=== PATIENT | male | born 1955 | race Caucasian/White ===

== ENCOUNTER 2020-05-16 13:07 | Outpatient (CLI) | payer OTHER, SELFPAY ==
--- NOTE | ~2020-05-16 | CT_ITS ---
EXAMINATION: CT abdomen pelvis wo con DATE: 05/16/2020 14:09 INDICATION: Unspecified abdominal pain TECHNIQUE: Computed tomography (CT) of the abdomen and pelvis was performed without intravenous contr ast. The dose-length product (DLP) was 506.67 mGy-cm. Automated exposure control and iterative recons truction technique were employed. COMPARISON: 10/22/2018 FINDINGS: Minimal dependent atelectasis is present in the lung bases. The heart size is normal. There is a small sliding hiatal hernia. The liver, spleen, pancreas, gallbladder, and adrenal glands are n ormal. There is a 4 mm nonobstructing stone of the left kidney lower pole. No stones are identified i n the right kidney, ureters, or the bladder. There is no hydronephrosis or hydroureter. No pathologic ally enlarged abdominal or pelvic lymph nodes are identified. There is no free intraperitoneal gas or evidence of bowel obstruction. Colonic diverticulosis is present without evidence of diverticulitis. The appendix is normal. There is a tiny fat-containing umbilical hernia. And unchanged sclerotic les ion of the sacrum has the appearance of a bone island. There is mild to moderate osteoarthritis of th e hips. Moderate spondylosis is noted in the lower lumbar spine. IMPRESSION: 1. No CT correlate for the patient's symptoms. 2. Nonobstructing left nephrolithiasis. Reviewed, dictated and finalized at location A. MANAGEMENT AIDE
== END 2020-05-16 13:08 | disposition home or self-care (01) ==
PROVIDERS: PCP Family Medicine; Visit Provider Family Medicine
DX: R10.9 Unspecified abdominal pain (principal); N20.0 Calculus of kidney
CPT/HCPCS: 74176

== ENCOUNTER 2021-01-04 11:45 | Outpatient (CLI) | payer OTHER, SELFPAY ==
--- NOTE | ~2021-01-04 | XR_ITS ---
EXAMINATION: XR_CERV2-3V_CR DATE: 01/04/2021 12:20 INDICATION: Neck pain. TECHNIQUE: 5 views of cervical spine were obtained. COMPARISON: Cervical spine radiographs 02/26/2018 FINDINGS: There is 7 degrees levocurvature of cervical spine. There is 2 mm anterolisthesis of C3 on C4 and 2 mm retrolisthesis of C4 on C5. Vertebral body heights are normal. There is moderately decrea sed disc height at C4-C5 and C5-C6 and severely decreased disc height at C6-C7. There is multilevel u ncovertebral joint osteoarthritis, severe on the right at C4-C5 and bilaterally at C5-C6 and C6-C7. T here is multilevel mild to moderate facet joint osteoarthritis. There is mild central canal stenosis at C3-C4, C4-C5, C5-C6, and C6-C7. No prevertebral soft tissue swelling. IMPRESSION: 1. Severe cervical spondylosis. Reviewed, dictated and finalized at location A.
== END 2021-01-04 11:46 ==
LOC: MICIMG 11:47
PROVIDERS: PCP Family Medicine; Visit Provider Family Medicine
DX: M47.892 Other spondylosis, cervical region (principal)
CPT/HCPCS: 72040

== ENCOUNTER 2021-06-03 07:57 | Outpatient (CLI) | payer OTHER, SELFPAY ==
--- NOTE | ~2021-06-03 | MR_ITS ---
EXAMINATION: MR shoulder LT wo con DATE: 06/03/2021 08:51 INDICATION: Tear of left rotator cuff. TECHNIQUE: Magnetic resonance imaging (MRI) of the left shoulder was performed without intravenous co ntrast. Sequences included axial PD-weighted FS FSE, coronal oblique PD-weighted FS FSE and T2-weight ed FS FSE, and sagittal oblique T2-weighted FS FSE and T1-weighted FSE. COMPARISON: None. FINDINGS: Coracoacromial arch: The acromion undersurface is curved in morphology with anterior hook (type III). There is severe acro mioclavicular joint osteoarthritis including inferiorly directed osteophytes. There is mild subacromi al/subdeltoid bursitis. Rotator cuff: There is severe supraspinatus tendinopathy. There is a bursal sided partial-thickness tear of suprasp inatus tendon measuring 1.3 cm anterior to posterior by 3.2 cm proximal to distal by 30% tendon thick ness. There is moderate infraspinatus tendinopathy. Teres minor tendon is normal. There is severe sub scapularis tendinopathy. There is no asymmetric fatty atrophy of the rotator cuff muscle bellies. Biceps tendon and glenoid labrum: Biceps tendon is in bicipital groove. There is a longitudinal split tear of proximal biceps tendon. T here is widespread tearing of the glenoid labrum (SLAP tear). Fluid: There is a small glenohumeral joint effusion. Bones/cartilage: There is shallow partial-thickness cartilage loss of glenoid and humeral head with marginal osteophyt es. IMPRESSION: 1. Severe rotator cuff tendinopathy with bursal sided partial-thickness tear of supraspinatus tendon. 2. Mild glenohumeral joint chondrosis. SLAP tear. 3. Longitudinal split tear of proximal biceps tendon. 4. Severe acromioclavicular joint osteoarthritis. 5. Small glenohumeral joint effusion. 6. Mild subacromial/subdeltoid bursitis. Reviewed, dictated and finalized at location B. CAL FRONT DESK SPECIALIST
== END 2021-06-03 07:58 | disposition home or self-care (01) ==
LOC: ANHIMG 08:06
PROVIDERS: PCP Family Medicine; Visit Provider Physician Assistant
DX: M75.21 Bicipital tendinitis, right shoulder (principal); M75.22 Bicipital tendinitis, left shoulder; M75.102 Unspecified rotator cuff tear or rupture of left shoulder, not specified as traumatic; M19.011 Primary osteoarthritis, right shoulder; M19.012 Primary osteoarthritis, left shoulder; M25.412 Effusion, left shoulder
CPT/HCPCS: 73221; 87070

== ENCOUNTER → 2021-11-07 02:04 | Outpatient (CLI) | payer OTHER, SELFPAY ==
[2021-11-07 12:44] LABS: SARS-CoV-2 RNA PCR Negative
== END ==
PROVIDERS: PCP Family Medicine; Visit Provider Nurse Practitioner Family
DX: R05.9 Cough, unspecified (principal); Z20.822 Contact with and (suspected) exposure to COVID-19
CPT/HCPCS: C9803; U0003; U0005

== ENCOUNTER 2023-01-03 09:08 | Outpatient (CLI) | payer OTHER, SELFPAY ==
--- NOTE | ~2023-01-03 | XR_ITS ---
Lumbosacral Spine: AP, oblique, and lateral views Clinical History: Pain Findings: The normal lordotic curve is maintained. Probable mild compression deformity of L1 present. No subluxation evident. There is severe facet arthropathy throughout the lumbar spine. There is mode rate degenerative disc narrowing at L5-S1. The sacroiliac joints are normally outlined. Impression: Probable mild compression fracture deformity of L1. Advanced degenerative spondylosis, as detailed above. Reviewed, dictated and finalized at location . Impression: Probable mild compression fracture deformity of L1. Advanced degenerative spondylosis, as detailed above.
== END 2023-01-03 09:09 ==
PROVIDERS: PCP Family Medicine; Visit Provider Chiropractor
DX: M47.817 Spondylosis without myelopathy or radiculopathy, lumbosacral region (principal); M53.87 Other specified dorsopathies, lumbosacral region; M25.48 Effusion, other site
CPT/HCPCS: 72110

== ENCOUNTER 2025-01-20 10:13 | Outpatient (CLI) | payer OTHER, SELFPAY ==
--- NOTE | ~2025-01-20 | XR_ITS ---
Lumbosacral Spine: AP and lateral views Clinical History: Pain Findings: The normal lordotic curve is maintained. No fracture seen. There is 6 mm retrolisthesis of L1 over L2. There is 7 mm anterolisthesis of L4 over L5. There is advanced degenerative disc narrowin g at L5-S1. There is severe facet arthropathy throughout the lumbar spine. The sacroiliac joints are normally outlined. Impression: 6 mm retrolisthesis of L1 over L2. 7 mm anterolisthesis of L4 over L5. Diffuse, severe facet arthropathy throughout the lumbar spine. Reviewed, dictated and finalized at location M. Impression: 6 mm retrolisthesis of L1 over L2. 7 mm anterolisthesis of L4 over L5. Diffuse, severe facet arthropathy throughout the lumbar spine.
== END 2025-01-20 10:14 | disposition home or self-care (01) ==
LOC: MICIMG 10:14
PROVIDERS: PCP Family Medicine; Visit Provider Family Medicine
DX: M54.50 Low back pain, unspecified (principal)
CPT/HCPCS: 72100

== ENCOUNTER 2025-06-15 03:24 | Day surgery (SDC) | payer OTHER, SELFPAY ==
--- OUTSIDE RECORDS SUMMARY | 2023-04-18 09:11 | XMS_ITS | Encounter Summary ---
Author Organization [facility] Healthcare Address [address] [place] [address] Care Team Providers Care Water Main Inspector Name Role Phone Glenn Hassan MD Primary Care Provider Reason for Visit * Diagnostic Imaging (Routine) - Closed Specialty Diagnoses / Procedures Referred By Contac t Referred To Contact Diagnoses Primary osteoarthritis of right hip Procedures XR Pelvis 1 or 2 Views Jt Vuong MD [address] [place] [address] [address] [place] [address] Phone: tel: Referral ID Status Reason Start Date Expiration Date Visits Re quested Visits Authorized [id number] Closed 04/18/2023 05/17/2024 1 1 Encounter Details Date Type Department Care Team (Late st Contact Info) Description 04/18/2023 10:11 AM CDT Hospital Encounter [facility] [address] [place] [address] [address] [place] [id number] Social History Tobacco Use Types Packs/Day Years Used Date Smoking Tobacco: Never Smokeless Tobacco: Never Alcohol Use Standard Drinks/Week Comments Yes 0 (1 standard drink = 0.6 oz pur e alcohol) AUDIT-C Answer Date Recorded Q1: How often do you have a drink containing alc ohol? Monthly or less 07/17/2023 Q2: How many drinks containi ng alcohol do you have on a typical day when you are drinking? 1 or 2 07/17/2023 Frequency of Binge Drinking Not on file 09/2023 Personal Safety Answer Date Recorded Have you ever been in or are you currently in a harmful physical or emotional relationship or is someone making you feel afraid or unsafe? 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 Not on file Not on file documented as of this encounter Functional Status * Difference in Last Two Narciso Scores Answer Date of Assessment Author 0 07/30/2023 9:10 AM Jazmín Disla RN * Question Answer Date of Assessment Author MAP (mmHg) 88 07/29/2023 11:20 AM JAIL KEEPER Marce Santacruz RN * Jose Fall Risk Question Answer Date of Assessment Author History of Falling 0 07/30/2023 9:10 AM Racheal Disla RN Secondary Diagnosis 0 07/30/2023 9:10 AM Racheal Santamaria RN Ambulatory Aids 15 07/30/2023 9:10 AM Racheal Hinds mm, RN Intravenous Therapy/Heparin/Saline Lock 20 07/30/2023 9:10 AM Jazmín Disla, RN Gait/Transferring 10 07/30/2023 9:10 AM Racheal Disla RN Mental Status 0 07/30/2023 9:10 AM Racheal Disla RN Morse Fall Risk Score (Score >= 45 places fall precaution order) 45 07/30/2023 9:10 AM Racheal Disla RN Prior Fall Event (Autopopulated from EMR) None found 07/30/2023 9:10 AM Josiane Disla RN * Narciso Scale Question Answer Date of Assessment Author Sensory Perceptions 4 07/30/2023 9:10 AM Racheal Santamaria RN Moisture 4 07/30/2023 9:10 AM Racheal Disla RN Activity 3 07/30/2023 9:10 AM Racheal Disla RN Mobility 3 07/30/2023 9:10 AM Racheal Disla RN Nutrition 3 07/30/2023 9:10 AM Racheal Disla RN Friction and Shear 3 07/30/2023 9:10 AM Racheal Disla RN Narciso Scale Score 20 07/30/2023 9:10 AM Racheal Disla, RADHA * Question Answer Date of Assessment Author BP Location Left arm 07/30/2023 10:54 AM Gayle Barton BP Method Automatic 07/30/2023 10:54 AM Gayle Barton * Fall Risk Interventions Question Answer Date of Assessment Author All Low Fall Interventions Applied Yes 2023 9:10 AM Racheal Disla, RADHA All Moderate Fall Interventi ons Applied Yes 07/30/2023 9:10 AM Racheal Disla RN All High Fall Risk Intervent ions Applied Yes 07/30/2023 9:10 AM Racheal Disla, RADHA * B.M.A.T. - Bedside Mobility Assessment Tool for Nurses Question Answer Date of Assessment Author Is patient able to participate in the BMAT? Yes 07/30/2023 9:10 AM Racheal Disla RN BMAT Level Level 3 - Yellow 07/30/2023 9:10 AM Racheal Pollack RN Level 3 Equipment Use assistive device such as cane/walker 07/30/2023 9:10 AM Racheal Disla, RADHA * Question Answer Date of Assessment Author 1. Has the patient self-repo rted, presented with clinical signs of, or have a documented history of any of the following within the past 30 days? No 07/30/2023 9:10 AM Racheal Disla, RN * Question Answer Date of Assessment Author Is the patient being treated today because it is known or suspected that they prepared, started, or tried to end their life? No 07/29/2023 3:23 PM Josiane Disla, RADHA * Question Answer Date of Assessment Author 1. In the past month, have y ou wished you were or that you could go to sleep and not wake up? No 07/29/2023 3:23 PM Racheal Hinds mm, RN 2. In the past month, have y ou actually had any thoughts of killing yourself? No 07/29/2023 3:23 PM Racheal Disla, RADHA 6. Have you ever done anythi ng, started to do anything, or prepared to do anything to end your life? No 07/29/2023 3:23 PM Racheal Disla, RADHA * Suicide Risk Level Answer Date of Assessment Author No risk level 07/29/2023 3:23 PM Jazmín Disla RN * Self-Injurious Risk Level Answer Date of Assessment Author No risk level 07/30/2023 9:10 AM Jazmín Disla RN * Pressure Injury Prevention Question Answer Date of Assessment Author Pressure Ulcer Prevention Interventions Keep skin clean and dry (Sensory Perception/Moisture) ;Provide adequate nutrition/fluid intake (Nutrition) 07/30/2023 9:10 AM Racheal Disla RN 2 Nurse Skin Assessment Elsie Springer RN, RN 3:26 PM Racheal Disla RN * Transdermal Patch Admission Assessment Question Answer Date of Assessment Author Transdermal Patch Assessment on Admission Other (comment) 07/29/2023 3:22 PM Racheal Disla RN * Alcohol Use Question Answer Date of Assessment Author Q1: How often do you have a drink containing alcohol? Monthly or less 07/17/2023 11:41 AM Carmella Newton RN Q2: How many drinks containing alcohol do you have on a typical day when you are drinking? 1 or 2 07/17/2023 11:41 AM Carmella Newton RN * Integumentary Question Answer Date of Assessment Author Skin Color Appropriate for ethnicity 07/30/2023 9:10 AM Racheal Disla RN Skin Condition/Temp Warm;Dry 07/30/2023 9 :10 AM Racheal Disla RN Skin Integrity Surgical incision 07/30/2023 9:1 0 AM Racheal Disla, RADHA Skin Turgor Non-tenting 07/30/2023 9:10 AM Racheal Disla RN Integumentary Additional Assessments Yes-Narciso 07/30/2023 9:10 AM Racheal Disla RN Integumentary (WDL) X 07/30/2023 9 :10 AM Racheal Disla RN Skin Location right hip 07/30/2023 9:10 AM Racheal Disla, RN * Question Answer Date of Assessment Author RLE Edema No pitting 07/29/2023 7:15 PM Nafisa Martinez RN Edema Right lower extremity 07/29/2023 7:15 PM Nafisa Cheek, RN * Question Answer Date of Assessment Author Percent Meal Eaten (%) 50 07/30/2023 10:30 A M Gayle Barton * Question Answer Date of Assessment Author BP Location Left arm 07/30/2023 10:54 AM Gayle Barton BP Method Automatic 07/30/2023 10:54 AM Gayle Barton * Question Answer Date of Assessment Author Bath Not bathed/showered 07/30/2023 10:11 AM Francisco Stout, OT * Fall Risk Interventions Question Answer Date of Assessment Author All Low Fall Interventions Applied Yes 2023 9:10 AM Racheal Disla RN All Moderate Fall Interventi ons Applied Yes 07/30/2023 9:10 AM Racheal Disla RN All High Fall Risk Intervent ions Applied Yes 07/30/2023 9:10 AM Racheal Disla, RADHA * ADL Screening Question Answer Date of Assessment Author Patient's Vision Adequate to Safely Complete Daily Activities Yes 07/29/2023 3:17 PM Racheal Disla, RADHA Patient's Judgement Adequate to Safely Complete Daily Activities Yes 07/29/2023 3:17 PM Kristen Disla, RADHA Patient's Memory Adequate to Safely Complete Daily Activities Yes 07/29/2023 3:17 PM Racheal Disla, RADHA Patient Able to Express Needs/Desires Yes 07/29/2023 3:17 PM Racheal Disla, RN Dressing Independent 07/29/2023 3:17 PM Racheal Disla, RN Grooming Independent 07/29/2023 3:17 PM Racheal Disla, RN Feeding Independent 07/29/2023 3:17 PM Racheal Disla, RN Bathing Independent 07/29/2023 3:17 PM Racheal Disla, RN Toileting Independent 07/29/2023 3:17 PM Racheal Disla, RN In/Out Bed Independent 07/29/2023 3:17 PM Racheal Disla, RN Walks in Home Independent 07/29/2023 3:17 PM Racheal Disla, RN Weakness of Legs None 07/29/2023 3:17 PM JAIL KEEPER Racheal Rdz, RN Weakness of Arms/Hands None 07/29/2023 3:17 PM Racheal Disla, RN Hearing - Right Ear Hard of hearing 07/29/2023 3:17 PM Racheal Disla, RN Hearing - Left Ear Hard of hearing 07/29/2023 3:17 PM Racheal Disla, RN Dominant hand? Right 07/29/2023 3:17 PM Racheal Norwood, RADHA Decline in ADLs in last 2 weeks? No 07/29/2023 3:17 PM Racheal Disla, RN * Therapy Consults Question Answer Date of Assessment Author PT Evaluation Needed 2 07/29/2023 3:17 PM Racheal Welsh, RADHA OT Evaluation Needed 2 07/29/2023 3:17 PM Racheal Welsh, RN CREDIT CONSULTANT Evaluation Needed 2 07/29/2023 3:17 PM Racheal Disla, RN * Assistive Devices Question Answer Date of Assessment Author Assistive Devices/DME Eyeglasses 07/29/2023 3:17 PM Racheal Disla, RN * Speech/Swallow Screening Question Answer Date of Assessment Author Currently, does patient have difficulty swallowing; coughing/choking while swallowing, or feels like food is sticking No 07/29/2023 3:17 PM Racheal Disla RN In the past two weeks has the patient had changes in speaking or ability to comprehend conversation No 07/29/2023 3:17 PM Racheal Disla RN Currently, does patient require thickened liquids or dysphagia diet No 07/29/2023 3:17 PM Racheal Disla RN Patient is in need of CREDIT CONSULTANT Order: No CREDIT CONSULTANT order needed from this assessment 07/29/2023 3:17 PM Racheal Disla RN * Hygiene Question Answer Date of Assessment Author Hygiene Level of Assistance Moderate assist 07/29/2023 7:15 PM JAIL KEEPER Nafisa Randall RN documented as of this encounter Mental Status * Question Answer Entry Date Author Orientation Oriented X4 (person, place, time, situation) 07/30/2023 10:11 AM JAIL KEEPER Francisco Valerio OT * Question Answer Entry Date Author Level of Consciousness Alert;Awake 07/30/2023 9:10 AM Racheal Disla RN Neuro (WDL) WDL 07/30/2023 9:10 AM Racheal Disla RN documented in this encounter Plan of Treatment Pending Results Name Type Priority Associated Diagnoses Date /Time XR Pelvis 1 or 2 Views Imaging Schedule Routine, Read Routine (OP Routine) Primary osteoarthritis of right hip 04/18/2023 1:28 PM CDT documented as of this encounter Visit Diagnoses Not on filedocumented in this encounter Care Teams Water Main Inspector Relationship Specialty Start Date End Date Glenn Hassan MD [address] [facility] [address] [facility] [address] [place] [address] PCP - General Family Medicine 07/20/19 documented as of this encounter
[2025-05-26 13:59] VITALS: BMI 32.5
--- OUTSIDE RECORDS SUMMARY | 2025-06-15 03:26 | XMS_ITS | Clinical Summary ---
Author Organization [facility] Address [address] [place] [id number] Care Team Providers Care Optical Engineering Technician Name Role Phone Glenn Hassan MD Primary Care Provider [phone] Social History Tobacco Use Types Packs/Day Years Used Date Smoking Tobacco: Never Assessed Sex and Gender Information Value Date Recorded Sex Assigned at Not on file Legal Sex Male 2:41 PM CDT Gender Identity Not on file Sexual Orientation Not on file Plan of Treatment Health Maintenance Due Date Last Done Comments Colorectal Cancer Screening Colonoscopy (10 Years) 1955 Hepatitis C 1972 DTaP, Tdap and Td Vaccines ( 1 - Tdap) 1973 Pneumococcal Vaccine: 50+ Ye ars (1 of 1 - PCV) 2004 Zoster Vaccines (1 of 2) 2004 COVID-19 Vaccine (1 - 2024-2 6 season) 2025 Influenza Adult (#1) 2025 RSV Immunization or 60+ Years (1 - 1-dose 75+ series) 2029 Hepatitis A Vaccines Aged Out No long er eligible based on patient's age to complete this topic Meningococcal B Vaccine Aged Out No l onger eligible based on patient's age to complete this topic Meningococcal Vaccine Aged Out No missy sarah eligible based on patient's age to complete this topic RSV Immunizations Under 20 Months Aged Out No longer eligible based on patient's age to complete this topic Care Teams Optical Engineering Technician Relationship Specialty Start Date End Date Glenn Hassan MD [address] [place] [address] PCP - General FAMILY PRACTICE 01/07/25
--- OUTSIDE RECORDS SUMMARY | 2025-06-15 03:26 | XMS_ITS | Clinical Summary ---
Author Organization [facility] Address [address] [place] [address] Care Team Providers Care Diet Consultant Name Role Phone Glenn Hassan MD Primary Care Provider Jt Vuong MD Unavailable [phone] Allergies No known active allergies Medications metFORMIN XR (GLUCOPHAGE XR) 500 mg 24 hr tablet metformin ER 500 mg tablet,extended release 24 hr Active lisinopril (PRINIVIL,ZESTRI L) 40 mg tablet Take 1 tablet (40 mg total) by mouth daily 0 Active hydroCHLOROthiaz ruthy (HYDRODIURIL) 25 mg tablet Take 1 tablet (25 mg total) by mouth daily Active esomeprazole DR (NexIUM) 40 mg capsule Take 1 capsule (40 mg total) by mouth daily before breakfast Active Januvia 100 mg tablet Take 1 tablet (100 mg total) by mouth daily 3 Active ferrous sulfate 325 mg (65 mg of elemental iron) tablet Take 1 tablet (325 mg total) by mouth daily with breakfast Active cholecalciferol 25 mcg (1,000 unit) tablet Take 1 tablet (1,000 Units total) by mouth daily Active vitamin A 2,400 mcg (8,000 units) capsule Take 1 capsule (8,000 Units total) by mouth daily Active multivit-min/fol ic/vit K/lycop (MEN'S 50 PLUS MULTIVITAMIN ORAL) Take by mouth daily Active aspirin (Ecotrin) 325 mg enteric coated tabletIndication s:prevention of thrombosis Take 1 tablet (325 mg total) by mouth daily 42 tablet 4 Active celecoxib (CeleBREX) 200 mg capsuleIndicatio ns:Postoperative Acute Pain Take 1 capsule (200 mg total) by mouth 2 (two) times a day 84 capsule 4 Active ondansetron (ZOFRAN) 8 mg tabletIndication s:Prevention of Post-Operative Nausea and Vomiting Take 1 tablet (8 mg total) by mouth every 8 (eight) hours as needed for nausea or vomiting 20 tablet 2 4 Active senna-docusate (PERICOLACE) 8.6-50 mg Take 1 tablet by mouth 2 (two) times a day as needed for constipation 60 tablet 2 4 Active oxyCODONE-acetam inophen (PERCOCET) 5-325 mg per tabletIndication s:Pain Take 1-2 tablets by mouth every 4 (four) hours as needed for pain 40 tablet 4 Active Vitamin C 500 mg tablet,chewable 4 Active Active Problems Problem Noted Date Diagnosed Date 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 09/23/2023 Age-related nuclear cataract 04/20/2014 Lattice degeneration of retina 04/20/2014 Retinal detachment with giant retinal tear 04/20 Vitreous hemorrhage 04/20/2014 Resolved Problems Problem Noted Date Diagnosed Date Resolved Date Primary osteoarthritis of right hip 07/17/2023 09/23/2023 Encounters Date Type Department Care Team Description 06/01/2025 Telephone [facility] Medicine Scheduling [address] [id number] Vandana Castro 05/10/2025 7:12 AM CDT - 05/10/2025 11:59 PM CDT Hospital Encounter [address] [address] Cervical spondylosis with myelopathy Discharge Disposition: Discharge to home or self care 04/23/2025 7:26 AM CDT - 04/23/2025 11:59 PM CDT Hospital Encounter [address] [address] Low back pain, unspecified back pain laterality, unspecified chronicity, unspecified whether sciatica present; Spondylosis without myelopathy or radiculopathy, lumbar region Discharge Disposition: Discharge to home or self care 04/19/2025 Orders Only [address] [address] Christina Ribeiro PA from Last 3 Months Surgical History Surgery Date Site/Laterality Comments KIDNEY STONE SURGERY TONSILLECTOMY Medical History Medical History Date Comments Hypertension Gastric reflux Diabetes mellitus Kidney stone Rheumatoid arthritis (HCC) Motion sickness Family History Medical History Relation Name Comments Arthritis Other Cancer Other Diabetes Other Hypertension Other Relation Name Status Comments Other Social History Tobacco Use Types Packs/Day Years Used Date Smoking Tobacco: Never Smokeless Tobacco: Never Tobacco Cessation:Counseling Given: Not Answered Alcohol Use Standard Drinks/Week Comments Yes 0 [...] on file Legal Sex Male 3:27 AM RESOURCE FORESTER Gender Identity Male 08/31/2019 12:03 PM RESOURCE FORESTER Sexual Orientation Not on file 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 Not on file Not on file Not on file Last Filed Vital Signs Vital Sign Reading Time Taken Comments Blood Pressure 163/97 09/24/2023 9:54 AM CDT Pulse 65 09/24/2023 9:54 AM CDT Temperature 36.8 C (98.3 F) 07/30/2023 10:54 AM RESOURCE FORESTER Respiratory Rate 18 07/30/2023 10:54 AM RESOURCE FORESTER Oxygen Saturation 95% 07/30/2023 10:54 AM RESOURCE FORESTER Inhaled Oxygen Concentration - - Weight 108.4 kg (239 lb) 09/24/2023 9:54 AM CDT Height 172.7 cm (5' 8) 09/24/2023 9:54 AM CDT Body Mass Index 36.34 09/24/2023 9:54 AM CDT Plan of Treatment Health Maintenance Due Date Last Done Comments Colon Cancer Screening-Colonoscopy 1954 Depression Screening 1954 Hepatitis C Screening 1954 DTaP/Tdap/Td Vaccine (1 - Tdap) 1965 Hepatitis B Screening 1972 Pneumococcal vaccine 65+ (1 of 1 - PCV) 2004 Zoster Vaccine (1 of 2) 2004 Abdominal Aortic Aneurysm (AAA) Screen 2019 Well Visit 65+ 2019 Fall Risk Assessment 07/30/2024 07/30/2023 Influenza Vaccine (#1) 2025 07/10/2013 Medical Devices Implanted Type Area Plant Operator Helper Device Identifier Shelf Expiration Date Model / Serial / Lot [employer] [place] 58mm 36mm Hip Neutral Liner Acetabular Altrx Sterile Latex Free [id number] - [id number] Implanted:Qty: 1 on 07/29/2023 by Jt Vuong MD at [facility] Right: Hip [employer] 03/14/2028 [id number] / / [id number] [employer] [place] 58mm Sector Hip Shell Acetabular Gription Sterile Latex Free [id number] - [id number] Implanted:Qty: 1 on 07/29/2023 by Jt Vuong MD at [facility] Right: Hip [employer] 04/13/2033 [id number] / / [id number] [employer] [place] 6.5mm 35mm Acetabular Cancellous Screw Bone Sterile 1217-35-500 - [id number] Implanted:Qty: 1 on 07/29/2023 by Jt Vuong MD at [facility] Right: Hip [employer] 02/11/2033 [id number] / / [id number] [employer] Actis Collar Hip 7 High Offset Stem Femoral [id number] - [id number] Implanted:Qty: 1 on 07/29/2023 by Jt Vuong MD at [facility] Right: Hip [employer] 03/14/2033 [id number] / / [id number] [employer] Articul/Caesar 36mm Cementless Hip +5mm 06/27 Taper Head Femoral Latex Free [id number] - [id number] Implanted:Qty: 1 on 07/29/2023 by Jt Vuong MD at [facility] Right: Hip [employer] 05/14/2028 [id number] / / [id number] Procedures Procedure Name Priority Date/Time Associated Diagnosis Comments MRI CERVICAL SPINE WO CONTRAST Schedule Routine, Read Routine (OP Routine) 05/10/2025 7:56 AM CDT Cervical spondylosis with myelopathy MRI LUMBAR SPINE WO CONTRAST Schedule Routine, Read Routine (OP Routine) 04/23/2025 8:21 AM CDT Low back pain, unspecified back pain laterality, unspecified chronicity, unspecified whether sciatica present Spondylosis without myelopathy or radiculopathy, lumbar region from Last 3 Months Results * MRI Cervical Spine WO Contrast (05/10/2025 7:56 AM CDT) Anatomical Region Laterality Modality Spine N/A Magnetic Resonan ce 05/10/2025 11:0 3 AM CDT Impressions 05/10/2025 11:03 AM CDT Severe multilevel cervical spondylosis. Cervical disc degeneration at C5-C6 with small central disc protrusion likely resulting in mild ventral cord flattening. Severe bilateral foraminal narrowing at this level, right greater than left. Severe right-sided occipital cervical and C1 to arthritic change. Multilevel foraminal narrowing and endplate osteophytic spurs and chronic disc changes at several levels, detailed above. Given the degree of osseous/hypertrophic spurring and facet arthritic changes, cervical CT correlation would be beneficial. Electronically signed by: Davida Barton M.D. Narrative 05/10/2025 11:03 AM CDT EXAMINATION: Magnetic resonance imaging (MRI) of the cervical spine without contrast HISTORY: History of multiple falls over the past 15 years. Bilateral arm pain. Chronic neck pain. Cervical spondylosis with myelopathy. TECHNIQUE: Multiplanar multi-weighted MRI of the cervical spine was performed without intravenous contrast using the standard protocol. COMPARISON: No comparison cervical imaging. FINDINGS: There is a trace degenerative anterolisthesis of C3 on C4 and slight retrolisthesis of C5 on C6. Alignment otherwise is normal. Vertebral height is maintained. There is no acute osseous abnormality or fracture. The cervical spinal cord is normal in signal intensity and contour. There is no atrophy or intramedullary cord signal abnormality evident. There is multilevel cervical disc degeneration. Disc levels are as follows: At the occipital cervical and C1-C2 articulation, there is severe arthritic change of the superior and inferior articular facet of C1 with joint space narrowing, fluid and a joint spaces and mild endplate marrow edema. In addition, there is bulky osteophytic spurring of the right C1 facet.. Normal atlantodens interval although there is mild arthritis. No definite abnormality left occipital C1 or C1-C2 articulation. C2-C3, mild bilateral facet arthritic change, left greater than right. Left-sided uncovertebral spurring. Mild left foraminal narrowing. No right foraminal narrowing or central canal stenosis. C3-C4, severe hypertrophic facet arthropathy on the left with uncovertebral spurring also with left-sided asymmetry. Severe osseous foraminal narrowing on the left. Mild spinal stenosis. No right foraminal narrowing. C4-C5, prominent bulky posterior endplate-uncovertebral osteophytic spurring and right-sided facet arthritis. Severe right foraminal narrowing. Mild left foraminal narrowing. Mild displacement of the right cervical cord posteriorly but no cord impingement. C5-C6, there is posterior disc osteophytic complex with what might represent a shallow central disc protrusion. In addition, there is severe bilateral uncovertebral hypertrophy and facet arthritis bilaterally with severe bilateral foraminal narrowing, right greater than left. There is moderate spinal stenosis with mild ventral cord impingement.. C6-C7, uncovertebral spurring on the left with left facet arthritis. Mild left foraminal narrowing. No central canal stenosis or right foraminal narrowing. C7-T1 disc level is normal. Included skull base is normal. The included upper thoracic spine is relatively unremarkable aside from mild noncompressive disc degeneration. Procedure Note Davida aBrton MD - 05/10/2025 EXAMINATION: Magnetic resonance imaging (MRI) of the cervical spine without contrast HISTORY: History of multiple falls over the past 15 years. Bilateral arm pain. Chronic neck pain. Cervical spondylosis with myelopathy. TECHNIQUE: Multiplanar multi-weighted MRI of the cervical spine was performed without intravenous contrast using the standard protocol. COMPARISON: No comparison cervical imaging. FINDINGS: There is a trace degenerative anterolisthesis of C3 on C4 and slight retrolisthesis of C5 on C6. Alignment otherwise is normal. Vertebral height is maintained. There is no acute osseous abnormality or fracture. The cervical spinal cord is normal in signal intensity and contour. There is no atrophy or intramedullary cord signal abnormality evident. There is multilevel cervical disc degeneration. Disc levels are as follows: At the occipital cervical and C1-C2 articulation, there is severe arthritic change of the superior and inferior articular facet of C1 with joint space narrowing, fluid and a joint spaces and mild endplate marrow edema. In addition, there is bulky osteophytic spurring of the right C1 facet.. Normal atlantodens interval although there is mild arthritis. No definite abnormality left occipital C1 or C1-C2 articulation. C2-C3, mild bilateral facet arthritic change, left greater than right. Left-sided uncovertebral spurring. Mild left foraminal narrowing. No right foraminal narrowing or central canal stenosis. C3-C4, severe hypertrophic facet arthropathy on the left with uncovertebral spurring also with left-sided asymmetry. Severe osseous foraminal narrowing on the left. Mild spinal stenosis. No right foraminal narrowing. C4-C5, prominent bulky posterior endplate-uncovertebral osteophytic spurring and right-sided facet arthritis. Severe right foraminal narrowing. Mild left foraminal narrowing. Mild displacement of the right cervical cord posteriorly but no cord impingement. C5-C6, there is posterior disc osteophytic complex with what might represent a shallow central disc protrusion. In addition, there is severe bilateral uncovertebral hypertrophy and facet arthritis bilaterally with severe bilateral foraminal narrowing, right greater than left. There is moderate spinal stenosis with mild ventral cord impingement.. C6-C7, uncovertebral spurring on the left with left facet arthritis. Mild left foraminal narrowing. No central canal stenosis or right foraminal narrowing. C7-T1 disc level is normal. Included skull base is normal. The included upper thoracic spine is relatively unremarkable aside from mild noncompressive disc degeneration. IMPRESSION: Severe multilevel cervical spondylosis. Cervical disc degeneration at C5-C6 with small central disc protrusion likely resulting in mild ventral cord flattening. Severe bilateral foraminal narrowing at this level, right greater than left. Severe right-sided occipital cervical and C1 to arthritic change. Multilevel foraminal narrowing and endplate osteophytic spurs and chronic disc changes at several levels, detailed above. Given the degree of osseous/hypertrophic spurring and facet arthritic changes, cervical CT correlation would be beneficial. Electronically signed by: Davida Barton M.D. us Adeel Singh MD IMG MRI PROCEDURES Final Result * MRI Lumbar Spine WO Contrast (04/23/2025 8:21 AM CDT) Anatomical Region Laterality Modality Spine N/A Magnetic Resonan ce 04/23/2025 8:24 AM CDT Narrative 04/23/2025 8:39 AM CDT EXAM DESCRIPTION: MRI LUMBAR SPINE WO CONTRAST REASON FOR STUDY: M54.50, M47.816 Low back pain . Bilat leg pain/numbness/weakness Hx of diabetic neuropathy TECHNIQUE: Sagittal and Axial imaging includes T1, T2, STIR sequences. COMPARISON: None available. FINDINGS: SEGMENTATION: 5 sil-[id number]-[id number] lumbar type vertebral bodies. ALIGNMENT: Grade 1 retrolisthesis of L1 on L2 and L3 on L4. Grade 1 anterolisthesis of L4 on L5. VERTEBRAE: The L2 vertebral body inferior margin STIR signal to the left of midline is nonspecific and could be degenerative in nature. Previous imaging studies are not available for comparison. Please correlate with point tenderness if there is concern for fracture with edema. Elsewhere multilevel additional endplate degenerative changes and marginal spur formation. The L5-S1 opposing endplate STIR signal would be compatible with degenerative change. There is diffuse facet arthropathy. The L2-L3 through L5-S1 facet joint variable extent STIR signal can be seen with synovitis in the proper clinical scenario. There are inter spinous degenerative changes. The L1 vertebral body rounded T1 and T2 hyperintense signal in keeping with intraosseous hemangioma. DISC HEIGHT: Diffuse disc desiccation and height loss. HARDWARE: None in the spine. CORD/CAUDA: Conus medullaris terminates at L1. Disorganized appearance of the cauda equina nerve roots would be compatible with redundancy given high-grade spinal canal stenosis as discussed below. LOWER THORACIC: Incompletely imaged. Degenerative changes without high-grade spinal canal stenosis. INDIVIDUAL DISC LEVELS: L1-L2: Retrolisthesis of L1 on L2 with unroofing of the disc. Thickened ligamentum flavum and facet arthropathy. Flattening of the ventral thecal sac. Moderate left and bodc-pe-aogojglz proximal right neural foraminal narrowing. L2-L3: Disc bulge eccentric to the left neural foramen. Thickened ligamentum flavum with facet arthropathy. Bilateral facet joint effusion. Right subarticular zone through right neural foraminal 1.1 x 0.3 x 1.3 cm T2 hyperintense, T1 hypointense signal could reflect a prominent synovial cyst (series 9001, image 24 and series 5001, image 11). Previous imaging studies are not available for comparison. If there is concern for a primary T2 hyperintense mass such as a peripheral nerve sheath tumor then consider patient return for postcontrast imaging. Severe spinal canal stenosis, severe lateral recess narrowing and severe proximal right neural foraminal narrowing. Moderate left neural foraminal narrowing. L3-L4: Retrolisthesis of L3 on L4 with unroofing of the disc. Thickened ligamentum flavum with bilateral facet arthropathy. Right and left dorsal lateral spinal canal mixed T1 and T2 signal could be complex synovial cyst and/or spur formation. Constellation of findings with severe spinal canal, lateral recess and right neural foraminal narrowing. Moderate left neural foraminal narrowing. L4-L5: Anterolisthesis of L4 on L5 with unroofing of the disc. Thickened ligamentum flavum and facet arthropathy. Severe spinal canal stenosis and lateral recess narrowing on both sides. Severe right and moderate left neural foraminal narrowing. L5-S1: Disc bulge with marginal spur formation. Bilateral facet arthropathy. No significant spinal canal stenosis. Yfad-af-jfqplqkd neural foraminal narrowing. SACRUM: Partially imaged. The S3 segment 0.5 cm T1 and T2 dark signal could reflect a sclerotic lesion such as a bone island in a patient without history of malignancy. IMPRESSION: 1. The L2 inferior endplate STIR signal to the left of midline is nonspecific and could be degenerative in nature. Please correlate with point tenderness if there is concern for fracture with edema. 2. Diffuse lumbar disc degeneration with thickened ligamentum flavum and facet arthropathy as described. Severe spinal canal stenosis from L2-L3 through L4-L5. 3. Neural foraminal stenosis throughout the lumbar spine ranging up to severe. 4. The L2-L3 right subarticular through right neural foraminal focal T2 hyperintense signal could reflect a prominent perineural cyst. The need for postcontrast sequences as clinically indicated. 5. Previous imaging studies are not available for comparison. THIS IS AN ELECTRONICALLY VERIFIED FINAL REPORT 04/23/2025 8:39 AM - Electronically signed by Frankie FREDERICK T: Report ID: [id number] Reading Location: [place] [address] Procedure Note Frankie Luis, DO - 04/23/2025 EXAM DESCRIPTION: MRI LUMBAR SPINE WO CONTRAST REASON FOR STUDY: M54.50, M47.816 Low back pain . Bilat leg pain/numbness/weakness Hx of diabeticneuropathy TECHNIQUE: Sagittal and Axial imaging includes T1, T2, STIR sequences. COMPARISON: None available. FINDINGS: SEGMENTATION: 5 xzl-rew-lmoexsa lumbar type vertebral bodies. ALIGNMENT: Grade 1 retrolisthesis of L1 on L2 and L3 on L4. Grade 1 anterolisthesis of L4 on L5. VERTEBRAE: The L2 vertebral body inferior margin STIR signal to the leftof midline is nonspecific and could be degenerative in nature. Previousimaging studies are not available for comparison. Please correlate with point tenderness if there is concern for fracture with edema. Elsewheremultilevel additional endplate degenerative changes and marginal spur formation. The L5-S1 opposing endplate STIR signal would be compatible with degenerative change. There is diffuse facet arthropathy. The L2-L3 through L5-[id number] joint variable extent STIR signal can be seen with synovitis in the proper clinical scenario. There are inter spinous degenerative changes. The L1 vertebral body rounded T1 and T2 hyperintense signal in keeping with intraosseous hemangioma. DISC HEIGHT: Diffuse disc desiccation and height loss. HARDWARE: None in the spine. CORD/CAUDA: Conus medullaris terminates at L1. Disorganized appearanceof the cauda equina nerve roots would be compatible with redundancy given high-grade spinal canal stenosis as discussed below. LOWER THORACIC: Incompletely imaged. Degenerative changes without high-grade spinal canal stenosis. INDIVIDUAL DISC LEVELS: L1-L2: Retrolisthesis of L1 on L2 with unroofing of the disc. Thickened ligamentum flavum and facet arthropathy. Flattening of the ventral thecal sac. Moderate left and tklx-lh-rvrprgfk proximal right neural foraminal narrowing. L2-L3: Disc bulge eccentric to the left neural foramen. Thickenedligamentum flavum with facet arthropathy. Bilateral facet joint effusion. Right subarticular zone through right neural foraminal 1.1 x 0.3 x 1.3 cm T2 hyperintense, T1 hypointense signal could reflect a prominent synovialcyst (series 9001, image 24 and series 5001, image 11). Previous imagingstudies are not available for comparison. If there is concern for a primary T2 hyperintense mass such as a peripheral nerve sheath tumor then consider patient return for postcontrast imaging. Severe spinal canal stenosis,severe lateral recess narrowing and severe proximal right neural foraminalnarrowing. Moderate left neural foraminal narrowing. L3-L4: Retrolisthesis of L3 on L4 with unroofing of the disc. Thickened ligamentum flavum with bilateral facet arthropathy. Right and left dorsal lateral spinal canal mixed T1 and T2 signal could be complex synovial cyst and/or spur formation. Constellation of findings with severe spinalcanal, lateral recess and right neural foraminal narrowing. Moderate left neural foraminal narrowing. L4-L5: Anterolisthesis of L4 on L5 with unroofing of the disc. Thickened ligamentum flavum and facet arthropathy. Severe spinal canal stenosis and lateral recess narrowing on both sides. Severe right and moderate leftneural foraminal narrowing. L5-S1: Disc bulge with marginal spur formation. Bilateral facetarthropathy. No significant spinal canal stenosis. Grma-ul-lczylkes neural foraminal narrowing. SACRUM: Partially imaged. The S3 segment 0.5 cm T1 and T2 dark signalcould reflect a sclerotic lesion such as a bone island in a patient withouthistory of malignancy. IMPRESSION: 1. The L2 inferior endplate STIR signal to the left of midline is nonspecific and could be degenerative in nature. Please correlate withpoint tenderness if there is concern for fracture with edema. 2. Diffuse lumbar disc degeneration with thickened ligamentum flavum and facet arthropathy as described. Severe spinal canal stenosis from L2-L3 through L4-L5. 3. Neural foraminal stenosis throughout the lumbar spine ranging up to severe. 4. The L2-L3 right subarticular through right neural foraminal focal T2 hyperintense signal could reflect a prominent perineural cyst. The needfor postcontrast sequences as clinically indicated. 5. Previous imaging studies are not available for comparison. THIS IS AN ELECTRONICALLY VERIFIED FINAL REPORT 04/23/2025 8:39 AM - Electronically signed by Frankie FREDERICK T: Report ID: [id number] Reading Location: [place] [address] Christina JONES IMG MRI PROCEDURES Fi nal Result from Last [address] [place] [address] [place] [place] [address] [address] [facility] ADVANTAGE [place] [address] [employer] PPO Advance Directives For more information, please contact: [phone] * Full Code (Latest Code Status on File) Date Activated Date Inactivated Comments 07/29/2023 3:16 PM 07/30/2023 5:53 PM Care Teams Diet Consultant Relationship Specialty Start Date End Date Glenn Hassan MD [address] [facility] [address] [place] [address] PCP - General Family Medicine 07/20/19 Jt Vuong MD [address] [place] [address] [address] [place] [address] Surgeon Orthopedic Surgery 07/29/23
--- OUTSIDE RECORDS SUMMARY | 2025-06-15 03:26 | XMS_ITS | Clinical Summary ---
Author Organization [facility] Address [address] [place] [address] Phone Care Team Providers Care Software Tools Developer Name Role Phone Unavailable Primary Care Provider Unavailabl e Allergies No known active allergies Medications metFORMIN (GLUCOPHAGE XR) 500 mg Extended Release 24 hour tablet Take 4 Tablets by mouth daily. 04/06/2025 Active Januvia 50 mg Tablet 04/16/2025 Active lisinopriL (PRINIVIL) 40 mg tablet Take 1 Tablet by mouth daily. 03/26/2025 Active hydroCHLOROthia zide 25 mg tablet Take 25 mg by mouth daily. Active esomeprazole (NexIUM) 40 mg Capsule, Delayed Release(E.C.) Take 1 Capsule by mouth daily. 01/03/2025 Active naproxen (NAPROSYN) 500 mg tablet Take 1 Tablet by mouth 2 times daily. 03/09/2025 Active Active Problems Problem Noted Date Diagnosed Date Neurogenic claudication due to lumbar spinal marshal nosis 05/12/2025 Spondylolisthesis, lumbar region 05/12/2025 Encounters Date Type Department Care Team Description 05/12/2025 8:30 AM CDT Office Visit [facility] ([facility] Neurosurgery [facility] [address] [place] [address] Adeel Singh MD Neurogenic claudication due to lumbar spinal stenosis (Primary Dx); Spondylolisthesis, lumbar region 05/04/2025 External Device Data [facility] ABSTRACTION Provider, Abstract 04/27/2025 External Device Data [facility] ABSTRACTION Provider, Abstract 04/27/2025 External Device Data [facility] ABSTRACTION Provider, Abstract 04/27/2025 External Device Data [facility] ABSTRACTION Provider, Abstract 04/21/2025 10:30 AM CDT Office Visit [facility] ([facility] Neurosurgery [address] [place] [address] Adeel Singh MD Cervical spondylosis with myelopathy (Primary Dx); Spondylolisthesis, lumbar region; Neurogenic claudication due to lumbar spinal stenosis 04/21/2025 Telephone [facility] ([facility] Neurosurgery [address] [place] [phone] Adeel Singh MD Imaging Auth 04/08/2025 Orders Only [facility] Neurosurgery [address] [place] [phone] Provider, Abstract 04/07/2025 Abstract [facility] Neurosurgery [address] [place] [phone] Adeel Singh MD from Last 3 Months Family History Relation Name Status Comments Father Mother Social History Tobacco Use Types Packs/Day Years Used Date Smoking Tobacco: Never Smokeless Tobacco: Never Tobacco Cessation:Counseling Given: Not Answered Alcohol Use Standard Drinks/Week Comments Yes 0 (1 standard drink = 0.6 oz pur e alcohol) rare Sex and Gender Information Value Date Recorded Sex Assigned at Not on file Legal Sex Male 11:06 AM CDT Gender Identity Not on file Sexual Orientation Not on file Last Filed Vital Signs Vital Sign Reading Time Taken Comments Blood Pressure 148/96 05/12/2025 8:30 AM CDT Pulse 76 05/12/2025 8:30 AM CDT Temperature 36.6 C (97.9 F) 05/12/2025 8:30 AM CDT Respiratory Rate 16 05/12/2025 8:30 AM CDT Oxygen Saturation 98% 04/21/2025 10: 46 AM CDT Inhaled Oxygen Concentration - - Weight 101.2 kg (223 lb 3.2 oz) 05/12/2025 8:30 AM CDT Height 176.5 cm (5' 9.5) 05/12/2025 8:30 AM CDT Body Mass Index 32.49 05/12/2025 8:30 AM CDT Plan of Treatment Health Maintenance Due Date Last Done Comments Pre-Diabetes and Diabetes Screening 1955 DTAP/TDAP/TD VACCINES (1 - Tdap) 1973 COLORECTAL SCREENING 1999 Colorectal Cancer Screening 1999 FIT-DNA Q 3 years 1999 FIT/FOBT Q 1 year 1999 Flex Sig/CT Colonography Q 5 years 1999 PNEUMOCOCCAL VACCINE 50+ YEARS (1 of 1 - PCV) 06/25/20 04 ZOSTER VACCINE (1 of 2) 2004 INFLUENZA VACCINE (#1) 2025 RSV VACCINE (60+ or ) (1 - 1-dose 75+ series) [address] [place] [address] [facility] PPO [facility]
[2025-06-15 09:47] VITALS: BP 141/83; PULSE 70; RESP 18; TEMP 36.9; O2SAT 98
--- NOTE | 2025-06-15 10:12 | P.PNAN_ITS ---
Anes - Initial Pre Proc Eval Procedure: Operation Date: 06/15/25 11:00 Proposed Procedures p Screening Colonoscopy - Yoan Frye MD Date/Time: 06/15/25 10:12 Surgeon: Yoan Frye MD Pre Op Diagnosis: Encounter for screening for malignant neoplasm of Patient Data Age: 69 Gender: M Height: 1.75 m Weight: 98 kg Last Vital Signs Temp 36.9 C 06/15/25 09:47 Pulse 70 06/15/25 09:47 Resp 18 06/15/25 09:47 BP 141/83 H 06/15/25 09:47 Pulse Ox 98 06/15/25 09:47 O2 Del Method Room Air 06/15/25 09:47 Allergies Allergy/AdvReac Type Severity Reaction Status Date / Time No Known Allergies Allergy Mild Verified 05/26/25 13:58 Home Medications ?Medication ?Instructions ?Recorded ?Confirmed ?Type blood-glucose,porcelain technician,cont #1 ea 01/07/25 04/16/25 Rx (FreeStyle Juliet 3 [place]) blood-glucose sensor (FreeStyle #2 ea 02/08/25 5 Rx Juliet 3 Plus Sensor device) hydrochlorothiazide 25 mg tablet 25 mg PO DAILY #90 ta bs 02/15/25 06/15/25 Rx lisinopril 40 mg tablet 40 mg PO DAILY #90 tabs 03/1506/15/25 Rx esomeprazole magnesium 40 mg See Rx Instructions .Rout e 04/12/25 06/15/25 Rx capsule,delayed release .COMPLEX #90 caps sitagliptin phosphate 50 mg tablet 50 mg PO DAILY #90 tabs 04/16/25 06/15/25 Rx metformin 500 mg tablet,extended See Rx Instructions . Route 06/01/25 06/15/25 Rx release 24 hr .COMPLEX #120 tabs Patient hx anesthesia problems: none Family hx anesthesia problems: none Results Review: All pre-operative results and documents have been reviewed as part of the pre- operative evaluation. [facility] Past Medical History Medical History Diabetic retinopathy Family History Family History Sibling Patient's sister is in good health Patient's brother is in good health Social History Social History Social History: Smoking status: Never smoker Second hand tobacco smoke exposure: No Alcohol intake: never Substance use: never Substance use type: does not use Lack of Transportation: No Lack of Food: Never True Current Housing: I Have Housing Concerned About Future Housing: No Difficulty Paying Gas/Electric Bills: No Difficulty Paying for Meds: No Currently Unemployed: YES Education: Don't Know Difficulty w/ Childcare or Family Care: No Living arrangements: alone Occupation/Education: retired Gender identity (if verbalized by the patient): Male Sexual Orientation (if Verbalized by the Patient): Straight or Heterosexual Spiritual care concerns: No Anes - Eval Final PreProcedure Day of Procedure 06/15/25 10:12 Patient weight: obese Heart: regular rate and rhythm Lungs: decreased breath sounds Airway: Mallampati scale class III Neurological: alert and oriented Last oral intake: >/= 8 hours ASA classification: III Emergent: no Anesthetic plan: proceed Anesthesia type and monitoring: general GIVS and standard monitoring Results Review: All pre-operative results and documents have been reviewed as part of the pre- operative evaluation. Informed Consent: The patient's anesthetic plan and its attendant risks and benefits were discussed with the patient/family/POA. Questions were solicited and answers provided to the satisfaction of the patient/family/POA.
--- NOTE | 2025-06-15 10:30 | PM.HPGS ---
History of Present Illness History of Present Illness Consent: Risks, benefits, and alternatives have been discussed and questions answered. Patient agrees to proceed with procedure. Chief complaint: Encounter for screening for malignant neoplasm of Narrative: Ben Ramirez is a 69 year old male here for screening colonoscopy Review of Systems Review of Systems: All systems reviewed & are unremarkable except as noted in HPI and below PMFSH Past Medical History Medical History (Updated 06/15/25 @ 10:31 by Yoan Frye MD) Colon cancer screening Diabetic retinopathy Family History Family History Sibling Patient's sister is in good health Patient's brother is in good health Social History Social History Social History: Smoking status: Never smoker Second hand tobacco smoke exposure: No Alcohol intake: never Substance use: never Substance use type: does not use Lack of Transportation: No Lack of Food: Never True Current Housing: I Have Housing Concerned About Future Housing: No Difficulty Paying Gas/Electric Bills: No Difficulty Paying for Meds: No Currently Unemployed: YES Education: Don't Know Difficulty w/ Childcare or Family Care: No Living arrangements: alone Occupation/Education: retired Gender identity (if verbalized by the patient): Male Sexual Orientation (if Verbalized by the Patient): Straight or Heterosexual Spiritual care concerns: No Meds Home Medications and Allergies Home Medications ?Medication ?Instructions ?Recorded ?Confirmed ?Type blood-glucose,skein dyer,cont #1 ea 01/07/25 04/16/25 Rx (FreeStyle Juliet 3 [place]) blood-glucose sensor (FreeStyle #2 ea 02/08/25 04/16/25 Rx Juliet 3 Plus Sensor device) hydrochlorothiazide 25 mg tablet 25 mg PO DAILY #90 tabs 02/15/25 06/15/25 Rx lisinopril 40 mg tablet 40 mg PO DAILY #90 tabs 03/26/25 06/15/25 Rx esomeprazole magnesium 40 mg See Rx Instructions .Route 04/12/25 06/15/25 Rx capsule,delayed release .COMPLEX #90 caps sitagliptin phosphate 50 mg tablet 50 mg PO DAILY #90 tabs 04/16/25 06/15/25 Rx metformin 500 mg tablet,extended See Rx Instructions .Route 06/01/25 06/15/25 Rx release 24 hr .COMPLEX #120 tabs Allergies Allergy/AdvReac Type Severity Reaction Status Date / Time No Known Allergies Allergy Mild Verified 05/26/25 13:58 Vital Signs Vital Signs - 24 hr 06/15/25 09:47 Temperature 98.4 F Pulse Rate 70 Respiratory Rate 18 Blood Pressure 141/83 H Pulse Oximetry 98 Oxygen Delivery Room Air Exam Const: General: comfortable and no acute distress HENMT: Face/Nose/Sinus: Normal nares present Eyes: General: appearance normal, both eyes and all related structures Resp: Auscultation: clear to auscultation bilaterally Cardio: Rate: regular rate Rhythm: regular rhythm GI: Inspection: non-distended GI Palp: Yes Soft to palpation Skin: General skin exam: normal color Extrem: General: normal to inspection Psych: Mental Status: mental status grossly normal Assessment and Plan Assessment and plan (1) Colon cancer screening: Code(s): Z12.11 - Encounter for screening for malignant neoplasm of colon Status: Acute Assessment and Plan: colonoscopy
[2025-06-15] MEDS: LACTATED RINGERS 1,000 ML 150 ML IV CONT (10:45)
[2025-06-15 10:47] VITALS: BP 93/51; PULSE 64; RESP 17; O2SAT 95
--- NOTE | 2025-06-15 10:48 | S_PTH ---
PATIENT: Ben Ramirez LOC: [facility]#:[id number] AGE/SX: 69/M ROOM: RE06/15/[address]: Yoan Frye MD : 1955 BED: DIS: 06/15/2025 SPEC #: [id number] RECD: 06/15/25 11:31 STATUS: EILE RECrystal #: [id number] MELVIN: 06/15/25 10:[address]: Yoan Frye DEPT: [facility] Surgical RECD BY: Siri Balbuena ENTERED: 06/15/25 11:32 SP TYPE: Surgical OTHR DR: Glenn Hassan MD Tissues: A - Colon Polypectomy Procedures: Hematoxylin and Eosin Stain Gross and Microscopic Level 4
[2025-06-15 10:57] VITALS: BP 103/58; PULSE 68; RESP 21; O2SAT 96
[2025-06-15 11:07] VITALS: BP 105/66; PULSE 66; RESP 21; O2SAT 98
--- NOTE | 2025-06-15 12:05 | SUR.PREOP ---
Patients blood sugar via his glucose monitor is 148.
== END 2025-06-15 11:28 | disposition home or self-care (01) ==
PROVIDERS: PCP Family Medicine; Visit Provider Internal Medicine Gastroenterology
PROC: 0DJD8ZZ Inspection of Lower Intestinal Tract, Via Natural or Artificial Opening Endoscopic (ICD-10-PCS; CPT 45378; principal; 2025-06-15 11:00)
DX: Z12.11 Encounter for screening for malignant neoplasm of colon (principal); K62.1 Rectal polyp; K57.30 Diverticulosis of large intestine without perforation or abscess without bleeding; K64.8 Other hemorrhoids; E66.9 Obesity, unspecified; Z68.31 Body mass index [BMI] 31.0-31.9, adult
CPT/HCPCS: 45385; 88305; J2003; J2704; J7120